=== PATIENT | male | born 1950 | race Caucasian/White ===

== ENCOUNTER → 2023-09-24 12:07 | Outpatient (REF) | payer MEDICARE, SELFPAY | LOC: RAD 12:07 | PROVIDERS: ATTENDING PHYSICIAN Family Medicine | DX: M25.561 Pain in right knee (principal) | CPT/HCPCS: 73564 ==

== ENCOUNTER → 2024-09-09 10:03 | Outpatient (REF) | payer MEDICARE, SELFPAY ==
[2024-09-09 11:27] LABS: % Basophils 0.6 % (0-2); % Eosinophils 1.3 % (0-6); % Immature Granulocytes 0.5 % (0-0.5); % Lymphocytes 32.4 % (20.5-51.1); % Monocytes 6.5 % (1.7-9.3); % Neutrophils 58.7 % (42.2-75.2); Absolute Basophils 0.1 10^3/uL (0-0.2); Absolute Eosinophils 0.1 10^3/uL (0-0.7); Absolute Lymphocytes 2.6 10^3/uL (1.2-3.4); Absolute Monocytes 0.5 10^3/uL (0.1-0.6); Absolute Neutrophils 4.7 10^3/uL (1.4-6.5); Hematocrit 48.8 % (39.0-52.0); Mean Corp Hgb Conc. 32.8 g/dL (33.0-37.0); Mean Corpuscular Hgb 30.1 pg (27.0-31.0); Mean Corpuscular Volume 91.7 fL (80.0-94.0); Mean Platelet Volume 10.4 fL (7.4-10.4); Nucleated Red Blood Cells % 0 % (-); Platelet Count 165 10^3/uL (130-400); Red Blood Cell Count 5.32 10^6/uL (4.70-6.10)
[2024-09-09 11:52] LABS: ALT (SGPT) 36 U/L (0-50); AST (SGOT) 32 U/L (17-59); Albumin 4.8 g/dl (3.5-5.0); Alkaline Phosphatase 120 U/L (38-126); Blood Urea Nitrogen 19 mg/dl (9-20); Calcium 11.2 mg/dl (8.4-10.2); Carbon Dioxide 21 mmol/L (22-30); Chloride 104 mmol/L (98-107); Glucose 160 mg/dl (70-99); HDL Cholesterol 43 mg/dl; LDL Cholesterol, Calculated 76 mg/dl; Potassium 5.3 mmol/L (3.5-5.1); Sodium 137 mmol/L (135-145); Total Bilirubin 1.3 mg/dl (0.2-1.3); Total Cholesterol 140 mg/dl (50-199); Total Protein 7.1 g/dl (6.3-8.2); Triglyceride 106 mg/dl (10-149); Very Low Density Lipoprotein 21 mg/dl (0-30); eGFR > 60.00
[2024-09-09 12:08] LABS: Vitamin D, 25-OH*** 15.3 ng/mL (30-80)
[2024-09-09 12:22] LABS: Intact PTH 332.9 pg/ml (13.6-85.8)
[2024-09-09 12:45] LABS: Glycohemoglobin (HgbA1c) 7.6 % (4.0-5.6)
[2024-09-09 12:47] LABS: Microalbumin, Random Urine < 0.6 mg/dl (0.6-1.7)
== END ==
LOC: REG 10:03
PROVIDERS: ATTENDING PHYSICIAN Family Medicine
DX: E78.5 Hyperlipidemia, unspecified (principal); E11.69 Type 2 diabetes mellitus with other specified complication; E55.9 Vitamin D deficiency, unspecified; E21.0 Primary hyperparathyroidism; Z00.00 Encounter for general adult medical examination without abnormal findings
CPT/HCPCS: 36415; 80053; 80061; 82043; 82306; 82570; 83036; 83970; 85025

== ENCOUNTER 2025-02-09 15:10 | Emergency (ER) | payer MEDICARE, SELFPAY ==
[2025-02-09 15:17] VITALS: BP 133/82
[2025-02-09 15:46] LABS: Hematocrit 44.1 % (39.0-52.0); Hemoglobin 14.8 g/dL (13.0-18.0); Mean Corp Hgb Conc. 33.6 g/dL (33.0-37.0); Mean Corpuscular Volume 90.0 fL (80.0-94.0); Platelet Count 167 10^3/uL (130-400); Red Cell Dist. Width 13.6 % (11.5-14.5)
[2025-02-09 16:24] LABS: ALT (SGPT) 27 U/L (0-50); AST (SGOT) 27 U/L (17-59); Albumin 4.3 g/dl (3.5-5.0); Alkaline Phosphatase 95 U/L (38-126); Blood Urea Nitrogen 20 mg/dl (9-20); Calcium 13.2 mg/dl (8.4-10.2); Carbon Dioxide 22 mmol/L (22-30); Chloride 112 mmol/L (98-107); Glucose 187 mg/dl (70-99); Magnesium 1.9 mg/dl (1.6-2.3); Potassium 4.3 mmol/L (3.5-5.1); Sodium 138 mmol/L (135-145); Total Protein 6.8 g/dl (6.3-8.2); eGFR > 60.00
[2025-02-09 19:03] VITALS: BMI 36.4
[2025-02-09 19:04] VITALS: BP 126/83
[2025-02-09] MEDS: NSS 1000 IV (19:30)
--- NOTE | 2025-02-09 19:34 | ED.GENMED ---
History of Present Illness
General
Chief Complaint: Abnormal Lab Value
Source: patient and spouse
Time Seen by Provider: 02/09/25 18:58
History of Present Illness
History of Present Illness:
74-year-old male presents to the emergency room complaining of elevated calcium level. Patient had blood drawn by his primary care doctor and the result came back with a 'critical' calcium level. Patient was aware that he had
'hyperparathyroidism'. His levels were elevated in August. There was some discussion about him taking vitamin D but he has decided not to take it. Patient's feels like he is mildly confused at times but not always. He denies polyuria
polydipsia. He denies any muscle pain or weakness.
Phy Exam
Physical Exam
Physical Exam:
General: Awake, Alert, Oriented X3. No acute distress. High BMI
Vitals: unremarkable
Head: Atraumatic
Eyes: Pupils equal, EOMI
Throat: Airway intact, no exudates
Neck: Trachea midline
Lungs: Clear and equal b/l
Heart: Regular rate, no murmurs
Abd: Soft, Nontender, No pulsatile mass
Neuro: Nonfocal
Skin: Warm, dry, no rash
Extremities: pulses equal b/l, no edema
Course
Orders/Labs/Results
Orders:
Orders
02/09/25 15:16
EKG [Electrocardiogram (*1)] Urgent
Reason for Study: Tachycardia
Other Reason for Exam: pt unsure why hes tachy, states 'I drove, maybe thats why'
02/09/25 15:17
EKG- Treatment ONCE
02/09/25 15:36
Complete Blood Count/No Diff Urgent
Comprehensive Metabolic Panel Urgent
Magnesium Urgent
02/09/25 19:20
0.9% Sodium Chloride 1000 ml [Nss] 1,000 ml IV BOLUS
Abnormal Lab Results
02/09/25
15:36
MPV 10.5 H fL
(7.4-10.4)
Chloride 112 H mmol/L
(98-107)
Glucose 187 H mg/dl
(70-99)
Calcium 13.2 H* mg/dl
(8.4-10.2)
02/09/25 15:36
02/09/25 15:36
Vital Signs
Initial and Last Documented VS:
Initial Vital Signs
Temp Pulse Resp BP Pulse Ox
98 F 111 16 133/82 97
02/09/25 15:17 02/09/25 15:17 02/09/25 15:17 02/09/25 15:17 02/09/25 15:17
Last Documented Vital Signs
Temp Pulse Resp BP Pulse Ox
98 F 78 20 126/83 97
02/09/25 15:17 02/09/25 21:15 02/09/25 21:15 02/09/25 19:04 02/09/25 21:15
MDM/Problems Addressed
Differential Diagnosis Includes:
Hypercalcemia from parathyroid excess, hyperthyroidism from cancer, other electrolyte abnormality
MDM/Problems Addressed:
Patient presents with elevated calcium level as an outpatient. Labs here show normal renal function. Patient is not tachycardic. He does not examine to be particularly dry. He seems relatively asymptomatic. Case discussed with endocrinology
on-call, Dr. Juan. She will have her office contact the patient tomorrow. Given he is essentially asymptomatic she does not feel the patient needs to be admitted which I agree with. She will assure close outpatient follow-up for further
management. Patient encouraged to push oral fluids. Return for confusion, weakness, vomiting or other concerns.
*Pulse Oximetry
SaO2: 98
Oxygen Mode of Delivery: Room air
Patient hypoxic: no
*EKG
Interpreted by ED Provider?: Yes
Interpretation: abnormal
Heart Rate: 104
Rate: tachycardiac
Rhythm: sinus tachycardia
Horton: normal axis
Interval: normal interval
QRS Pattern: normal QRS
Ischemia: no ischemia
*Hiv Counselor Interpretation
Rate: normal
Interpretation: normal
Rhythm: sinus
*Critical Care Note
Total Time (30-74mins, 75-104mins- exclusive of procedures): Not Applicable
ED Attending Note
-
Portions of this chart may have been created with voice recognition software.� Occasional wrong word or��sound alike� substitutions may have occurred due to the inherent limitations of voice recognition software.
Discharge Plan
Departure
Patient Disposition: Home (Routine Discharge)
Date of Disposition: 02/09/25
Time of Disposition: 20:31
Patient with high blood pressure during this ER visit?: No
Condition: Good
Discharge Problem:
Hypercalcemia, Hyperparathyroidism
Instructions: Hypercalcemia
Prescriptions:
No Action
allopurinol 100 mg Tablet
100 mg PO DAILY
simvastatin 20 mg Tablet
20 mg PO DAILY
lisinopril 40 mg Tablet
40 mg PO DAILY
Januvia 100 mg Tablet
100 mg PO DAILY
Voltaren 1 % gel
1 applic topical DAILYPRN PRN (Reason: apply to R knee)
Referrals:
Yohannes Matthews DO [Family Provider, Family Practice]
Wade Juan MD [Consulting Staff, Endocrinology]
Interventions
Interventions:
*Risk Screen - Suicide Last Done: 02/09/25 15:17
*General Assessment Last Done: 02/09/25 19:03
*Neglect/Abuse Screening Last Done: 02/09/25 15:17
*ED- Fall Risk Assessment Last Done: 02/09/25 15:17
*ED COVID-19 Vaccine History Last Done: 02/09/25 19:03
*Nursing Disposition Last Done: 02/09/25 21:28
Discharge Date and Time
Discharge Date/Time: 02/09/25 21:30
Print Language: IRISH
== END 2025-02-09 21:30 | disposition home or self-care (01) ==
LOC: EMR 15:10
PROVIDERS: Emergency Medicine; EMERGENCY PHYSICIAN Emergency Medicine; FAMILY PHYSICIAN Family Medicine
DX: E83.52 Hypercalcemia (principal); E21.3 Hyperparathyroidism, unspecified; R00.0 Tachycardia, unspecified
CPT/HCPCS: 96360; 99284; 36415; 80053; 82310; 83735; 85027; 93005

== ENCOUNTER → 2025-03-03 07:35 | Outpatient (REF) | payer MEDICARE, SELFPAY | LOC: RAD 07:35 | PROVIDERS: ATTENDING PHYSICIAN Nurse Practitioner Family; FAMILY PHYSICIAN Family Medicine; OTHER PHYSICIAN Surgery | DX: E21.0 Primary hyperparathyroidism (principal) | CPT/HCPCS: 76536; 78071; A9500 ==

== ENCOUNTER 2025-03-17 05:59 | Day surgery (SDC) | payer MEDICARE, SELFPAY ==
[2025-03-13 14:15] VITALS: BMI 38.0
[2025-03-17] VITALS (8 sets, daily range): BP systolic 117–150; BP diastolic 62–84; BMI 38.0
[2025-03-17 06:30] LABS: Glucose - Point of Care 181 mg/dl (70-99)
[2025-03-17] MEDS: TYLENOL 1000 MG PO (06:41)
[2025-03-17] MEDS: HEPARIN 5000 UNITS SC (06:41)
[2025-03-17] MEDS: NEURONTIN 300 MG PO (06:41)
[2025-03-17] MEDS: NORMOSOL-R/PLASMALYTE-A 1000 IV (06:41)
[2025-03-17 08:49] LABS: Turbo PTH 896.9 pg/ml (13.6-85.8)
--- NOTE | 2025-03-17 09:57 | OR.RPT ---
Operative Report
Operative Report
Date of Operation: March 17, 2025
Preoperative Diagnosis: Hyperparathyroidism - E210
Postoperative Diagnosis: Same
Surgeon: Shun Garcia M.D.
Operation: Minimally Invasive Right Superior and Inferior Parathyroidectomy - 14387
Anesthesia: GET
Estimated Blood Loss: 10 cc
Drains: None
Specimen: Right Superior and Inferior neck nodules, rule out parathyroid adenoma
Complications: None
Procedure:
The patient was taken to the operating room and placed in the usual supine position. After adequate general endotracheal anesthesia was established, the patient's neck was extended, prepped, and draped in the typical sterile fashion. A 5 cm
transcervical incision was made two fingerbreadths above the sternal notch. The skin incision was made with the #15 blade, and this was taken through the skin into the subcutaneous tissue. The underlying platysma muscle was divided, and subplatysmal
flaps were created superiorly to the thyroid cartilage and inferiorly to the sternal notch. Strap muscles were identified and at the midline.
Attention was turned to the patient's right side of the neck. The right thyroid lobe was mobilized medially. During this process, the right recurrent laryngeal nerve was identified and preserved throughout the surgery. The right upper and lower neck
nodules were identified and noted to be enlarged, excised, and sent to the pathology department, which showed a hypercellular parathyroid glands. About an hour after drawing the post-resection PTH blood sample, we were informed that the lab
department had misplaced it and could not locate the specimen. To avoid keeping the patient under general anesthesia any longer, a decision was made to extubate the patient and regroup if necessary.
After obtaining adequate hemostasis, the strap muscles were reapproximated with #3-0 Vicryl in a running fashion. The platysma muscle was reapproximated with #3-0 Vicryl in an interrupted fashion, and the skin was approximated with #4-0 Monocryl in
a running subcuticular fashion. The Steri-Strips and sterile dressings were placed. The patient tolerated the procedure well. The final instrument, needle, and sponge counts were correct. The patient was extubated and transferred to the PACU.
[2025-03-17 10:53] LABS: Turbo PTH 36.1 pg/ml (13.6-85.8)
[2025-03-17 11:00] LABS: Glucose - Point of Care 165 mg/dl (70-99)
== END 2025-03-17 12:05 | disposition home or self-care (01) ==
LOC: SDS 05:59
PROVIDERS: ATTENDING PHYSICIAN Surgery
DX: E21.3 Hyperparathyroidism, unspecified (principal)
CPT/HCPCS: 60500; 82962; 83970; 88305; 88331

== ENCOUNTER → 2025-04-04 08:37 | Outpatient (REF) | payer MEDICARE, SELFPAY ==
[2025-04-04 15:01] LABS: ALT (SGPT) 44 U/L (0-50); AST (SGOT) 36 U/L (17-59); Albumin 4.1 g/dl (3.5-5.0); Alkaline Phosphatase 130 U/L (38-126); Blood Urea Nitrogen 22 mg/dl (9-20); Calcium 7.9 mg/dl (8.4-10.2); Carbon Dioxide 22 mmol/L (22-30); Chloride 112 mmol/L (98-107); Glucose 160 mg/dl (70-99); Potassium 4.6 mmol/L (3.5-5.1); Sodium 140 mmol/L (135-145); Total Protein 6.4 g/dl (6.3-8.2); eGFR > 60.00
== END ==
LOC: REG 08:37
PROVIDERS: ATTENDING PHYSICIAN Internal Medicine Endocrinology, Diabetes & Metabolism; FAMILY PHYSICIAN Family Medicine
DX: E21.0 Primary hyperparathyroidism (principal)
CPT/HCPCS: 36415; 80053; 83970

== ENCOUNTER → 2025-06-28 07:27 | Outpatient (REF) | payer MEDICARE, SELFPAY | LOC: RCS 07:27 | PROVIDERS: ATTENDING PHYSICIAN Internal Medicine Cardiovascular Disease; FAMILY PHYSICIAN Family Medicine | DX: R01.1 Cardiac murmur, unspecified (principal) | CPT/HCPCS: 93306; Q9950 ==